=== PATIENT | male | born 1990 | race Two or more races ===

== ENCOUNTER → 2024-07-31 | Outpatient (CLI) | payer MEDICAID, SELFPAY ==
--- NOTE | 2024-07-31 11:30 | XR_ITS ---
Examination: CT abdomen with intravenous contrast CT pelvis with intravenous contrast 2-D coronal reconstructions 2-D sagittal reconstructions Date and time of exam:July 31, 2024 1212 hours INDICATIONS: Diagnosis disease of the pancreas, abdomen sonogram June 10, 2024 pancreatic head 4.2 cm. CTDI: vol (mGy) 10.6 DLP: (mGycm) 722 Technique: Multiple axial sections of the abdomen and pelvis have been obtained. 64 slice high-resolution scanner used. 3 mm axial sections have been obtained, post intravenous injection 60 cc [id number] 2-D sagittal, coronal reconstructions obtained. Low dose protocols were performed. One or more of the following dose reduction techniques were used; automated exposure control, adjustment of the mA and/or KV according to patient size, use of iterative reconstruction technique. Findings: No focal liver or splenic lesion No biliary tract dilatation No gallstones No pancreatic mass or peripancreatic edema Normal adrenal glands No hydronephrosis Aorta normal size No bowel obstruction Urinary bladder intact IMPRESSION: No pancreatic mass is identified
== END | disposition home or self-care (01) ==
LOC: CCTX 11:09
PROVIDERS: PCP Nurse Practitioner Family; Referring Provider Nurse Practitioner Family; Visit Provider Nurse Practitioner Family
DX: K86.89 Other specified diseases of pancreas (principal)
CPT/HCPCS: 74177; A4649; Q9967